=== PATIENT | female | born 1980 | race Caucasian/White ===

== ENCOUNTER 2019-12-25 13:13 | Emergency (ER) | payer OTHER, SELFPAY ==
--- NOTE | ~2019-12-25 | XR_ITS ---
EXAMINATION: XR lumbar spine 2-3V DATE: 12/25/2019 14:36 INDICATION: Right lower back pain TECHNIQUE: Anteroposterior, lateral, and bilateral oblique views of the lumbar spine, and cone-down l ateral view of the lumbosacral junction were obtained. COMPARISON: None. FINDINGS: There are 2 mm of retrolisthesis of L5 on S1. There is mild associated loss of intervertebr al disc space height at L5-S1. Small degenerative osteophytes project from the anterior endplates of multiple vertebral bodies. The vertebral body heights are maintained. There is partially imaged ortho pedic hardware in the left proximal femur. Phleboliths are noted in the pelvis. IMPRESSION: 1. Mild lumbar spondylosis without acute findings. Reviewed, dictated and finalized at location A.
[2019-12-25 13:30] VITALS: BP 150/95; PULSE 82; RESP 20; TEMP 37; O2SAT 99
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
[2019-12-25] MEDS: KETOROLAC (*BKC) 60 MG/2 ML VIAL IM (15:01)
== END 2019-12-25 14:55 | disposition home or self-care (01) ==
PROVIDERS: Emergency Provider Nurse Practitioner Family; PCP Internal Medicine
DX: M54.5 Low back pain (principal); M47.816 Spondylosis without myelopathy or radiculopathy, lumbar region; E66.01 Morbid (severe) obesity due to excess calories; Z68.42 Body mass index [BMI] 45.0-49.9, adult; F32.9 Major depressive disorder, single episode, unspecified
CPT/HCPCS: 72100; 96372; 99213; G0463; J1885

== ENCOUNTER 2021-05-12 08:50 | Emergency (ER) | payer BC, SELFPAY ==
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
[2021-05-12 09:04] VITALS: BP 171/89; PULSE 77; RESP 20; TEMP 36.7; O2SAT 100
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
[2021-05-12] MEDS: TETANUS,DIPHTHERIA,AC PERTUSSIS ADULT (0.5 ML) BOOSTRIX IM (10:40)
== END 2021-05-12 11:09 | disposition home or self-care (01) ==
PROVIDERS: Emergency Provider Nurse Practitioner; PCP Internal Medicine
DX: S92.351A Displaced fracture of fifth metatarsal bone, right foot, initial encounter for closed fracture (principal); S90.212A Contusion of left great toe with damage to nail, initial encounter; S80.212A Abrasion, left knee, initial encounter; Z23 Encounter for immunization; Z87.891 Personal history of nicotine dependence; X50.1XXA Overexertion from prolonged static or awkward postures, initial encounter
CPT/HCPCS: 29515; 11740; 73630; 90471; 90715; 99214; G0463

== ENCOUNTER 2021-12-03 07:48 | Outpatient (CLI) | payer BC, SELFPAY ==
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
[2021-12-06 02:37] VITALS: BMI 45.1
== END 2021-12-04 12:27 | disposition home or self-care (01) ==
LOC: ANHCSM 07:48
PROVIDERS: PCP Family Medicine; Visit Provider Family Medicine
DX: G47.33 Obstructive sleep apnea (adult) (pediatric) (principal)
CPT/HCPCS: 95806

== ENCOUNTER 2021-12-18 08:05 | Outpatient (CLI) | payer BC, SELFPAY ==
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
[2021-12-23 18:30] VITALS: BMI 45.0
== END 2021-12-19 07:04 | disposition home or self-care (01) ==
LOC: ANHCSM 08:07
PROVIDERS: PCP Family Medicine; Visit Provider Family Medicine
DX: G47.33 Obstructive sleep apnea (adult) (pediatric) (principal)
CPT/HCPCS: 95811